=== PATIENT | female | born 1960 | race Caucasian/White ===

== ENCOUNTER → 2016-06-09 | Outpatient (CLI) | payer OTHER ==
[~2016-06-09] MED LIST: ASPI81TA28 PO; AZITTAB PO; CLB/200 PO; CRAN1CAP PO; CRS/10 PO; CYAN500T PO; ERYOPO OPR; FLUO40CA8 PO; GLC/500 PO; HYDR-3714 PO; HYDR25TA4 PO; LISI-725 PO; LORA-741 PO; MULT-506 PO; OMEG10007 PO; PRENTAB26 PO
== END | disposition home or self-care (01) ==
LOC: C.LAB 14:29
PROVIDERS: ATTEND Internal Medicine
DX: R39.9 Unspecified symptoms and signs involving the genitourinary system (principal)

== ENCOUNTER → 2016-07-10 | Outpatient (CLI) | payer OTHER ==
--- NOTE | 2016-07-10 16:05 | DIAGNOSTIC IMAGING REPORT ---
CT TEMPORAL BONE/MASTOID NO CONTRAST CT DOSE: CLINICAL HISTORY: Right mastoid pain suspected mastoiditis TECHNIQUE: Unenhanced images were obtained through the mastoids. Sagittal and coronal reformatted imaging was performed. COMPARISON STUDY: None. FINDINGS: There is a right mastoid effusion. The middle ear cavities appear well aerated. There is no hydrocephalus. There are no findings to indicate intracranial abscess on this noncontrast study. The scutum appears intact bilaterally. IMPRESSION: Right mastoid effusion, consistent with the clinical diagnosis of mastoiditis Electronically signed by: Jamil Thomas M.D. 07/10/2016 4:04 PM Dictated Date/Time: 07/10/2016 4:01 PM
== END | disposition home or self-care (01) ==
LOC: C.CTS 15:35
PROVIDERS: ATTEND Internal Medicine
DX: H60.509 Unspecified acute noninfective otitis externa, unspecified ear (principal); H73.0 Acute myringitis; H72.90 Unspecified perforation of tympanic membrane, unspecified ear; H90.11 Conductive hearing loss, unilateral, right ear, with unrestricted hearing on the contralateral side

== ENCOUNTER → 2016-07-26 | Outpatient (CLI) | payer OTHER | END | disposition home or self-care (01) | LOC: C.LABSPEC 17:00 | DX: H92.11 Otorrhea, right ear (principal); H92.01 Otalgia, right ear ==

== ENCOUNTER → 2016-09-13 | Outpatient (CLI) | payer OTHER ==
[2016-09-13 13:47] LABS: ALT/SGPT 62 U/L (12-78); BLOOD UREA NITROGEN 12 mg/dl (7-18); CARBON DIOXIDE 27 mmol/L (21-32); CHLORIDE 103 mmol/L (98-107); CHOLESTEROL 205 mg/dl (0-200); CREATININE 0.73 mg/dl (0.60-1.20); GLUCOSE 107 mg/dl (70-99); POTASSIUM 4.2 mmol/L (3.5-5.1); SODIUM 138 mmol/L (136-145); TRIGLYCERIDES 305 mg/dl (0-150); VERY LOW DENSITY LIPOPROT CALC 61 mg/dl
[2016-09-13 13:53] LABS: ALKALINE PHOSPHATASE 110 U/L (45-117); AST/SGOT 39 U/L (15-37); CHOLESTEROL/HDL RATIO 5.1; FERRITIN 58.8 ng/ml (8.0-388.0); HDL CHOLESTEROL 40 mg/dl; LDL CHOLESTEROL CALCULATED 104 mg/dl; TOTAL IRON BINDING CAPACITY 325 mcg/dl (250-450)
[2016-09-13 14:04] LABS: CALCIUM 10.1 mg/dl (8.5-10.1)
[2016-09-13 14:16] LABS: BASO % 0.4 %; BASO ABS # 0.04 K/uL (0-0.2); COMPLETE YES; EOS % 2.6 %; HEMATOCRIT 42.9 % (37-47); IG% 0.4 %; LYMPH % 34.2 %; LYMPH ABS # 3.54 K/uL (1.2-3.4); MEAN CELL VOLUME 92.5 fL (80-100); MEAN CORPUSCULAR HEMOGLOBIN 31.5 pg (25-34); MEAN PLATELET VOLUME 10.7 fL (7.4-10.4); MONO % 4.7 %; NEUT % 57.7 %; PLATELET COUNT 362 K/uL (130-400); RED BLOOD COUNT 4.64 M/uL (4.2-5.4); WHITE BLOOD COUNT 10.34 K/uL (4.8-10.8)
[2016-09-13 14:34] LABS: ESTIMATED AVERAGE GLUCOSE 154 mg/dl; HA1C FLAG Normal (Normal)
== END | disposition home or self-care (01) ==
LOC: C.LABBFT 08:12
PROVIDERS: ATTEND Physician Assistant Medical
DX: E11.9 Type 2 diabetes mellitus without complications (principal); E78.5 Hyperlipidemia, unspecified; Z11.59 Encounter for screening for other viral diseases; D64.9 Anemia, unspecified

== ENCOUNTER → 2016-11-02 | Outpatient (CLI) | payer OTHER ==
[2016-11-02 18:35] LABS: URINE APPEARANCE CLEAR (CLEAR); URINE BILIRUBIN NEG (NEG); URINE COLOR YELLOW; URINE EPITHELIAL CELL AUTO 0-5 /lpf (0-5); URINE NITRITE POS (NEG); URINE PH 5.5 (4.5-7.5); URINE SPECIFIC GRAVITY 1.018 (1.000-1.030); UROBILINOGEN NEG (NEG)
[2016-11-02 18:43] LABS: MANUAL MICROSCOPIC REQUIRED? NO; REVIEW REQ? NO
== END | disposition home or self-care (01) ==
LOC: C.LABSPEC 17:47
PROVIDERS: ATTEND Physician Assistant Medical
DX: R39.9 Unspecified symptoms and signs involving the genitourinary system (principal)

== ENCOUNTER → 2016-11-21 | Outpatient (CLI) | payer OTHER ==
[2016-11-21 14:24] LABS: URINE APPEARANCE CLEAR (CLEAR); URINE BILIRUBIN NEG (NEG); URINE COLOR YELLOW; URINE EPITHELIAL CELL AUTO >30 /lpf (0-5); URINE NITRITE NEG (NEG); URINE SPECIFIC GRAVITY 1.019 (1.000-1.030); UROBILINOGEN NEG (NEG); ZZUR CULT IF INDIC CLEAN CATCH NO
[2016-11-21 14:31] LABS: MANUAL MICROSCOPIC REQUIRED? NO; REVIEW REQ? YES
== END | disposition home or self-care (01) ==
LOC: C.LABSPEC 12:35
PROVIDERS: ATTEND Physician Assistant Medical
DX: N39.0 Urinary tract infection, site not specified (principal)

== ENCOUNTER 2017-02-13 14:14 | Emergency (ER) | payer OTHER ==
[~2017-02-13] VITALS: Ht 167.6 cm; Wt 92.0 kg
[~2017-02-13 14:14] MED LIST changes: -ASPI81TA28 PO; -AZITTAB PO; -CRAN1CAP PO; -CYAN500T PO; -ERYOPO OPR; -PRENTAB26 PO
[2017-02-13 14:17] VITALS: Ht 167.6 cm; Wt 92.0 kg
[2017-02-13] MEDS ORDERED: COUGH DROP (SUGAR FREE) LOZ 24 LOZ/1 BOX PO STA (15:12)
[2017-02-13] MEDS ORDERED: BENZONATATE 100MG CAP PO STA (15:12)
[2017-02-13] MEDS ORDERED: GUAIFENESIN 600 MG TABCR PO STA (15:12)
[2017-02-13] MEDS ORDERED: ACETAMINOPHEN/CODEINE 300/30MG TAB PO ONE (15:15)
--- NOTE | 2017-02-13 15:26 | EMERGENCY ROOM VISIT NOTE ---
History Report prepared by Truong: Toñito Blackmon Under the Supervision of: Dr. Geo Duran M.D. First contact with patient: 14:36 Chief Complaint: COUGH Stated Complaint: CONT. PRODUCTIVE COUGH Nursing Triage Summary: Pt presents with c/o sore throat, n/v last night and this morning. Pt states she is diabetic, was unable to take meds this morning. Cough of green sputum x 6 days, body aches. History of Present Illness The patient is a 56 year old white female with a past medical history of HTN, kidney disease, diabetes, and kidney stones who presents to the ED with a cc of constant productive cough beginning six days ago. Positive congestion, rhinorrhea, right eye crusting for the past two days, chest heaviness, some diarrhea. Negative nausea, recent travels, history of blood clots. Her cough is producing green mucous with streaks of blood. She drinks alcohol occasional and smokes cigarettes. She is also around someone sick at home. Source of History: patient Onset: six days ago Position: other (global) Quality: other (cough) Timing: constant Associated Symptoms: + diarrhea, No nausea Note: Associated symptoms: congestion, rhinorrhea, right eye crusting, chest heaviness Review of Systems See HPI for pertinent positives and negatives. A total of ten systems were reviewed and were otherwise negative. Past Medical & Surgical Medical Problems: (1) Diabetes (2) HTN (hypertension) (3) Kidney disease Family History Cancer Diabetes mellitus FHx: gallbladder disease Heart disease Hypertension Kidney disease Kidney stones Social History Smoking Status: Current Every Day Smoker Marital Status: Housing Status: lives with friends Occupation Status: employed Current/Historical Medications Scheduled Aspirin (Aspirin Ec), 81 MG PO DAILY Azithromycin (Zithromax Z-Nabil), 1 PKT PO UD Cranberry-Vitamin C-Vitamin E (Cranberry Concentrate), 1 CAP PO DAILY Cyanocobalamin (Vitamin B-12), 500 MCG PO DAILY Erythromycin Opth (Erythromycin Opth), 0.5 INCH OPR QID Fish Oil ([place]-3), 1 CAP PO DAILY Fluoxetine (Prozac), 40 MG PO DAILY Hydrochlorothiazide (Hctz), 25 MG PO DAILY Lisinopril (Zestril), 20 MG PO DAILY Lorazepam (Ativan), 0.5 MG PO Q6H Metformin Hcl (Glucophage), 1,000 MG PO BID Multivit/Min/Iron/Fol Ac/Pren ( Vitamin), 1 TAB PO DAILY Rosuvastatin Calcium (Crestor), 10 MG PO DAILY Allergies Coded Allergies: Penicillins (Unverified Allergy, Unknown, YEAST INFECTION, 02/13/17) Amoxicillin (Verified Adverse Reaction, Mild, Yeast Infection, 02/13/17) Sulfamethoxazole w/Trimethoprim (Verified Adverse Reaction, Unknown, Yeast Infection, 08/29/13) Physical Exam Vital Signs Date Time Temp Pulse Resp B/P (MAP) Pulse Ox O2 Delivery O2 Flow Rate FiO2 02/13/17 17:29 37.5 76 20 142/82 95 02/13/17 17:05 76 20 142/82 95 Room Air 02/13/17 16:03 78 02/13/17 14:17 37.5 107 18 156/92 94 Room Air 02/13/17 14:17 95 Room Air Physical Exam GENERAL: Awake, alert, well-appearing, NAD HENT: Normocephalic, atraumatic. EYES: Mild conjunctivitis. No injection at the limbus. No hyphema or hypopyon. No drainage noted. No injection of the left eye. Visual acuity is grossly normal. Not proptotic. EOMI NECK: Supple. No nuchal rigidity. FROM. RESPIRATORY: CTAB, no rhonchi, wheezing, crackles CARDIAC: Tachycardic but regular. No MRG ABDOMEN: Soft, NTND, BS+ MSK: No chest wall TTP, no LE edema. No calf pain, erythema, or calor. NEURO: GCS 15, CN 2-12 intact, moves all 4s on command SKIN: No rash or jaundice noted. Medical Decision & Procedures ER Provider Diagnostic Interpretation: Radiology results as stated below per my review and radiologist interpretation: CHEST 2 VIEWS ROUTINE CLINICAL HISTORY: Cough. COMPARISON STUDY: Chest radiograph July 06, 2015. FINDINGS: Lung volumes are normal. No pneumothorax or pleural effusion is present. No consolidation is identified. Pulmonary vascularity is normal. Cardiomediastinal silhouette is normal. The appearance of the chest is unchanged. IMPRESSION: No acute cardiopulmonary findings. Electronically signed by: Sammy Leiva M.D. 02/13/2017 4:29 PM Dictated Date/Time: 02/13/2017 4:28 PM Laboratory Results 02/13/17 15:37 Red Blood Count 4.94, Mean Corpuscular Volume 89.9, Mean Corpuscular Hemoglobin 32.2, Mean Corpuscular Hemoglobin Concent 35.8, Mean Platelet Volume 10.2, Neutrophils (%) (Auto) 60.9, Lymphocytes (%) (Auto) 31.0, Monocytes (%) (Auto) 5.9, Eosinophils (%) (Auto) 1.7, Basophils (%) (Auto) 0.2, Neutrophils # (Auto) 7.56, Lymphocytes # (Auto) 3.85, Monocytes # (Auto) 0.73, Eosinophils # (Auto) 0.21, Basophils # (Auto) 0.03 02/13/17 15:37 Test 02/13/17 15:37 02/13/17 15:43 White Blood Count 12.42 K/uL (4.8-10.8) Red Blood Count 4.94 M/uL (4.2-5.4) Hemoglobin 15.9 g/dL (12.0-16.0) Hematocrit 44.4 % (37-47) Mean Corpuscular Volume 89.9 fL (80-100) Mean Corpuscular Hemoglobin 32.2 pg (25-34) Mean Corpuscular Hemoglobin Concent 35.8 g/dl (32-36) Platelet Count 350 K/uL (130-400) Mean Platelet Volume 10.2 fL (7.4-10.4) Neutrophils (%) (Auto) 60.9 % Lymphocytes (%) (Auto) 31.0 % Monocytes (%) (Auto) 5.9 % Eosinophils (%) (Auto) 1.7 % Basophils (%) (Auto) 0.2 % Neutrophils # (Auto) 7.56 K/uL (1.4-6.5) Lymphocytes # (Auto) 3.85 K/uL (1.2-3.4) Monocytes # (Auto) 0.73 K/uL (0.11-0.59) Eosinophils # (Auto) 0.21 K/uL (0-0.5) Basophils # (Auto) 0.03 K/uL (0-0.2) RDW Standard Deviation 42.9 fL (36.4-46.3) RDW Coefficient of Variation 13.2 % (11.5-14.5) Immature Granulocyte % (Auto) 0.3 % Immature Granulocyte # (Auto) 0.04 K/uL (0.00-0.02) Anion Gap 8.0 mmol/L (3-11) Est Creatinine Clear Calc Drug Dose 89.6 ml/min Estimated GFR () 94.0 Estimated GFR (Non- 81.1 BUN/Creatinine Ratio 17.0 (10-20) Calcium Level 9.7 mg/dl (8.5-10.1) Phosphorus Level 2.4 mg/dl (2.5-4.9) Magnesium Level 2.2 mg/dl (1.8-2.4) Bedside Troponin I < 0.030 ng/ml (0-0.045) Laboratory results reviewed by me Medications Administered Medications (Trade) Dose Ordered Sig/Beronica Route Start Time Stop Time Status Last Admin Dose Admin Acetaminophen/ Codeine Phosphate (Tylenol w/ Codeine #3 Tab) 1 tab NOW ONCE PO 02/13/17 15:15 02/13/17 15:19 DC 02/13/17 15:49 1 TAB Menthol ([place]) 1 eden NOW STAT PO 02/13/17 15:12 02/13/17 15:19 DC 02/13/17 15:50 1 EDEN Benzonatate (Tessalon Perles Cap) 100 mg ONE STAT PO 02/13/17 15:12 02/13/17 15:19 DC 02/13/17 15:50 100 MG Guaifenesin (Mucinex Contr Rel Tab) 1,200 mg ONE STAT PO 02/13/17 15:12 02/13/17 15:19 DC 02/13/17 15:49 1,200 MG ECG Indication: chest pain, other (cough) Rate (beats per minute): 87 Rhythm: sinus rhythm Findings: T-wave inversion (lead 3. Not contiguous), other (Normal intervals, mild elevation in lead 2 but no contiguous leads, no other STS changes or TWI) ED Course 1502: The patient was evaluated in room A3. A complete history and physical exam was performed. 1631: I reevaluated the patient. Discussed results and discharge instructions: She verbalized understanding and agreement. The patient is ready for discharge. Medical Decision The patient is a 56 year old white female with a past medical history of HTN, kidney disease, diabetes, and kidney stones who presents to the ED with a cc of constant productive cough beginning six days ago. Positive congestion, rhinorrhea, right eye crusting for the past two days, chest heaviness, some diarrhea. Negative nausea, recent travels, history of blood clots. Triage Nursing notes reviewed. The patient's presentation and history were concerning for URI, pharyngitis, sinusitis, conjunctivitis, atypical chest pain, PE, bronchitis, pneumonia. Patient was seen and evaluated at the bedside. Patient's symptoms most likely consistent with URI type symptoms and/or bronchitis. Patient's EKG did show some changes that she was told that she would need to follow-up. Patient's story is not consistent with chest pain. Patient had a negative troponin. Patient's chest x-ray negative. Not WELLS neg given some blood streak in sputum but more likely bronchitis given signs and symptoms. Patient was told to return if she had any SOB/CP but CP is only after prolonged persistent coughing. No hypoxia noted. Patient's tachycardia resolved. The rest of the patient's blood work was fairly unremarkable. Patient was told that she needs to continue supportive care at home. Patient was given prescriptions for her conjunctivitis as well as bronchitis if she has persistent or worsening symptoms. Patient was told to obtain a follow-up appointment. Patient was given strict follow-up, discharge, and return precautions. Patient agreed. Patient was safely discharged home. Medication Reconcilliation Current Medication List: was personally reviewed by me Blood Pressure Screening Patient's blood pressure: Elevated blood pressure Blood pressure disposition: Referred to PCP Impression Primary Impression: URI (upper respiratory infection) Additional Impression: Bronchitis Scribe Attestation The scribe's documentation has been prepared under my direction and personally reviewed by me in its entirety. I confirm that the note above accurately reflects all work, treatment, procedures, and medical decision making performed by me. Departure Information Dispostion Home / Self-Care Prescriptions Erythromycin Opth (ERYTHROMYCIN OPTH) 12 Appln/3.5 Gm Oint 0.5 INCH OPR QID for 1 Day, #1 TUBE Prov: Geo Duran M.D. 02/13/17 Azithromycin (ZITHROMAX Z-NABIL) 250 Mg Tab 1 PKT PO UD for 5 Days, #6 TAB Prov: Geo Duran M.D. 02/13/17 Referrals Cali, Lotus D., M.D. (PCP) Forms HOME CARE DOCUMENTATION FORM, IMPORTANT VISIT INFORMATION Patient Instructions Bronchitis Acute, ED Smoking Cessation, My [facility] Additional Instructions Please return to the emergency department if you have worsening or recurrent symptoms not amenable to at-home treatment. Please call for a follow-up appointment with her primary care physician. Please take your medications as prescribed. If you have other concerns and/or complaints please feel free to also call your primary care physician's office or return the ED for further evaluation, management, and treatment. Place warm clothes over affected eye. If still w/ purulent drainage you may start using drops. Discontinue any contact use until infection clears if using. Practice good hand hygiene and wash hands when touching eyes/face. You may take motrin as needed for pain but do not take it for more than 1-2 days at a time as it may cause upset stomach and/or kidney problems. You may take tylenol 1000mg every 6 hours as needed for pain. You may take over the counter Mucinex, cepacol/tessalon perrles as needed for sore throat. Only take you prescription if you develop fever or have persistent productive cough for more than 2 weeks. You have been examined and treated today on an emergency basis only. This is not a substitute for, or an effort to provide, complete comprehensive medical care. It is impossible to recognize and treat all injuries or illnesses in a single emergency department visit. It is therefore important that you follow up closely with [facility]. Call as soon as possible for an appointment. Thank you for your time and consideration. I look forward to speaking with you again soon. Please don't hesitate to call us if you have any questions. Problem Qualifiers Primary Impression: URI (upper respiratory infection) URI type: unspecified URI Qualified Codes: J06.9 - Acute upper respiratory infection, unspecified
[2017-02-13 15:56] LABS: BASO % 0.2 %; BASO ABS # 0.03 K/uL (0-0.2); COMPLETE YES; EOS % 1.7 %; HEMATOCRIT 44.4 % (37-47); IG% 0.3 %; LYMPH ABS # 3.85 K/uL (1.2-3.4); MEAN CELL VOLUME 89.9 fL (80-100); MEAN CORPUSCULAR HEMOGLOBIN 32.2 pg (25-34); MEAN CORPUSCULAR HGB CONC 35.8 g/dl (32-36); MEAN PLATELET VOLUME 10.2 fL (7.4-10.4); MONO % 5.9 %; NEUT % 60.9 %; PLATELET COUNT 350 K/uL (130-400); RED BLOOD COUNT 4.94 M/uL (4.2-5.4); WHITE BLOOD COUNT 12.42 K/uL (4.8-10.8)
[2017-02-13 16:14] LABS: CALCIUM 9.7 mg/dl (8.5-10.1); CREATININE 0.82 mg/dl (0.60-1.20); MAGNESIUM 2.2 mg/dl (1.8-2.4); PHOSPHORUS 2.4 mg/dl (2.5-4.9); POTASSIUM 3.8 mmol/L (3.5-5.1)
[2017-02-13] MEDS ORDERED: PRENTAB26 PO (16:25)
[2017-02-13] MEDS ORDERED: CRAN1CAP PO (16:26)
[2017-02-13] MEDS ORDERED: CYAN500T PO (16:26)
[2017-02-13] MEDS ORDERED: ASPI81TA28 PO (16:26)
--- NOTE | 2017-02-13 16:30 | DIAGNOSTIC IMAGING REPORT ---
CHEST 2 VIEWS ROUTINE CLINICAL HISTORY: Cough. COMPARISON STUDY: Chest radiograph July 06, 2015. FINDINGS: Lung volumes are normal. No pneumothorax or pleural effusion is present. No consolidation is identified. Pulmonary vascularity is normal. Cardiomediastinal silhouette is normal. The appearance of the chest is unchanged. IMPRESSION: No acute cardiopulmonary findings. Electronically signed by: Sammy Leiva M.D. 02/13/2017 4:29 PM Dictated Date/Time: 02/13/2017 4:28 PM
[2017-02-13] MEDS ORDERED: AZITTAB PO (17:01)
[2017-02-13] MEDS ORDERED: ERYOPO OPR (17:01)
[2017-02-13 17:29] VITALS: BP 142/82; PULSE 76; TEMP 37.5; O2SAT 95
== END 2017-02-13 17:29 | disposition home or self-care (01) ==
LOC: C.EDB 14:15 → C.EDA 17:29
DX: J06.9 Acute upper respiratory infection, unspecified (principal); J40 Bronchitis, not specified as acute or chronic; E11.9 Type 2 diabetes mellitus without complications; I10 Essential (primary) hypertension; N28.9 Disorder of kidney and ureter, unspecified; Z80.9 Family history of malignant neoplasm, unspecified; Z83.79 Family history of other diseases of the digestive system; Z84.1 Family history of disorders of kidney and ureter; Z82.49 Family history of ischemic heart disease and other diseases of the circulatory system; F17.210 Nicotine dependence, cigarettes, uncomplicated; Z79.82 Long term (current) use of aspirin; Z79.899 Other long term (current) drug therapy

== ENCOUNTER → 2017-04-27 | Outpatient (CLI) | payer OTHER ==
[~2017-04-27] MED LIST changes: +ASPI81TA28 PO; -CLB/200 PO; +CRAN1CAP PO; +CYAN500T PO; +ERYOPO OPR; -HYDR-3714 PO; -MULT-506 PO; +PRENTAB26 PO
[2017-04-27 09:31] LABS: ALT/SGPT 49 U/L (12-78); BLOOD UREA NITROGEN 18 mg/dl (7-18); BUN/CREATININE RATIO 24.2 (10-20); CALCIUM 9.8 mg/dl (8.5-10.1); CARBON DIOXIDE 29 mmol/L (21-32); CHLORIDE 101 mmol/L (98-107); CHOLESTEROL 177 mg/dl (0-200); CREATININE 0.74 mg/dl (0.60-1.20); GLUCOSE 110 mg/dl (70-99); POTASSIUM 3.9 mmol/L (3.5-5.1); SODIUM 136 mmol/L (136-145); TRIGLYCERIDES 338 mg/dl (0-150); VERY LOW DENSITY LIPOPROT CALC 68 mg/dl
[2017-04-27 09:36] LABS: ALKALINE PHOSPHATASE 111 U/L (45-117); AST/SGOT 37 U/L (15-37); CHOLESTEROL/HDL RATIO 4.3; HDL CHOLESTEROL 41 mg/dl; LDL CHOLESTEROL CALCULATED 68 mg/dl
[2017-04-28 07:38] LABS: ESTIMATED AVERAGE GLUCOSE 166 mg/dl; HA1C FLAG Normal (Normal)
[2017-04-30 13:22] LABS: HERPES SIMPLEX AB IGG-2 < 0.90 INDEX (< 0.90)
== END | disposition home or self-care (01) ==
LOC: C.LAB 07:15
PROVIDERS: ATTEND Physician Assistant Medical
DX: E78.5 Hyperlipidemia, unspecified (principal); E11.9 Type 2 diabetes mellitus without complications; Z11.3 Encounter for screening for infections with a predominantly sexual mode of transmission

== ENCOUNTER → 2017-05-01 | Outpatient (CLI) | payer OTHER | END | disposition home or self-care (01) | LOC: C.LABSPEC 17:49 | PROVIDERS: ATTEND Nurse Practitioner | DX: R31.9 Hematuria, unspecified (principal) ==

== ENCOUNTER → 2017-05-02 | Outpatient (CLI) | payer OTHER | END | disposition home or self-care (01) | LOC: C.PAPS 14:12 | PROVIDERS: ATTEND Nurse Practitioner | DX: Z01.419 Encounter for gynecological examination (general) (routine) without abnormal findings (principal) ==

== ENCOUNTER → 2017-05-04 | Outpatient (CLI) | payer OTHER ==
--- NOTE | 2017-05-04 15:39 | DIAGNOSTIC IMAGING REPORT ---
PELVIC COMPLETE NON OB CLINICAL HISTORY: N83.209 Ovarian cyst PAIN COMPARISON STUDY: Ovarian cyst FINDINGS: The uterus measured surgically removed. The endometrial stripe measured . The right ovary measured 2.6 cm maximum dimension. 4 mm calcification. No cystic change. Normal vascular flow.. The left ovary measured 2.8 cm maximum dimension. Normal vascular flow. There is no ultrasonographic evidence of ovarian torsion. It should be noted that ovarian torsion can be present with normal Doppler ultrasonographic findings. There was no evidence of pathologic free pelvic fluid. IMPRESSION: Negative study status post partial hysterectomy. No evidence for ovarian cyst. The above report was generated using voice recognition software. It may contain grammatical, syntax or spelling errors. Electronically signed by: Ger Whitehead M.D. 05/04/2017 3:37 PM Dictated Date/Time: 05/04/2017 3:36 PM
== END | disposition home or self-care (01) ==
LOC: C.ULTR 14:52
PROVIDERS: ATTEND Nurse Practitioner
DX: N83.209 Unspecified ovarian cyst, unspecified side (principal); Z90.711 Acquired absence of uterus with remaining cervical stump

== ENCOUNTER 2017-08-31 20:29 | Emergency (ER) | payer OTHER ==
[~2017-08-31] VITALS: Ht 167.6 cm; Wt 97.5 kg
[2017-08-31 20:32] VITALS: TEMP 36.7; Ht 167.6 cm; Wt 97.5 kg
[2017-08-31] MEDS ORDERED: CLINDAMYCIN HCL 150 MG CAP PO STA (21:15)
[2017-08-31] MEDS ORDERED: CLINDAMYCIN 150MG HOME PACK PO STA (21:15)
[2017-08-31] MEDS ORDERED: CLIN300C2 PO (21:28)
[2017-08-31 21:29] VITALS: BP 155/87; PULSE 91; O2SAT 94
--- NOTE | 2017-08-31 21:29 | EMERGENCY ROOM VISIT NOTE ---
ED Visit Note First contact with patient: 20:45 CHIEF COMPLAINT: Infection of the left great toe HISTORY OF PRESENT ILLNESS: This 57-year-old female patient presents to the emergency department, ambulatory, complaining of pain, redness, and swelling at the base of the left great toenail bed. The patient had the toenail removed 3 weeks ago by the ankle and customer solutions specialist. She states she was seen 2 days later and had a normal follow-up. She states 10 days ago, she returns to the office due to increased swelling, redness, and warmth. At that time, she was started on Augmentin, which she finished today. She states initially she felt that the symptoms were improving while on the antibiotic, however they began worsening the past few days. She describes a pressure like sensation, and states it is severe, worse with palpation. The area has become red, warm, and very painful. The patient denies fever, chills, nausea, or loss of appetite. Movement of the left great toe is mildly decreased because of the pain. The patient's tetanus shot is up to date. REVIEW OF SYSTEMS: A 10 system review of systems was performed with positives and pertinent negatives listed in the history of present illness. All other systems were reviewed and are negative. ALLERGIES: None MEDICATIONS: Augmentin PMH: Diabetes SOCIAL HISTORY: The patient lives locally with family. She denies drug, alcohol , tobacco use. PHYSICAL EXAM: Vital Signs: Reviewed Nurse's notes, Temperature 36.7C, blood pressure elevated, and the patient is slightly tachycardic. She does report feeling very anxious due to the emergency department visit. GENERAL: This is a 57-year-old obese white female, in no acute distress, is non toxic in appearance , well-developed, well-nourished. SKIN: The left great toe is red, warm, very tender, and swollen on the dorsal aspect, just proximal to the nailbed. There is no lymphangitic streaking. There is no discharge. There is no fluctuance. There is no induration. HEART: Regular rate and rhythm without murmur, gallop, or rub. LUNGS: Clear to auscultation bilaterally without wheezes, rales, or rhonchi. NEURO: Alert and oriented to person, place, and time. Normal sensation to light and sharp touch. Capillary reflex less than 2 seconds. Peripheral pulses 2 + bilaterally. EMERGENCY DEPARTMENT COURSE: I examined the patient. She presents with a localized cellulitis approximately 3 weeks after removal of a toenail. The patient is currently under the care of her foot and ankle specialist, and was recently given a course of Augmentin. The patient finished the Augmentin today , and states the symptoms seem to worsen over the past few days. The patient is currently diabetic, and based on her recent treatment with Augmentin, I feel that starting her with clindamycin is the best course of action. There is no active drainage, so I am unable to perform a culture. The patient does have an appointment scheduled to follow-up with her ankle and customer solutions specialist next week. The patient was encouraged to use a probiotic due to the risk of C. difficile infection associated with clindamycin. The patient was agreeable to the plan of care. All questions were answered to the patient and her daughter satisfaction. Discharge instructions reviewed, the patient was discharged home in good condition. I attest that I have personally reviewed the patient's current medication list. Patient was found to have an elevated blood pressure and was referred to their primary doctor for recheck and further treatment. Differential diagnosis includes cellulitis, abscess, DVT, superficial thrombus, septic joint, necrotizing fasciitis, burn, dermatitis, impetigo, erythema multiforme, bite, osteomyelitis, Gutierrez-Barry Syndrome, gangrene, malignancy , and others DIAGNOSIS: Cellulitis of the left great toe Current/Historical Medications Scheduled Aspirin (Aspirin Ec), 81 MG PO DAILY Clindamycin Hcl (Cleocin), 300 MG PO QID Cranberry-Vitamin C-Vitamin E (Cranberry Concentrate), 1 CAP PO DAILY Cyanocobalamin (Vitamin B-12), 500 MCG PO DAILY Erythromycin Opth (Erythromycin Opth), 0.5 INCH OPR QID Fish Oil ([place]-3), 1 CAP PO DAILY Fluoxetine (Prozac), 40 MG PO DAILY Hydrochlorothiazide (Hctz), 25 MG PO DAILY Lisinopril (Zestril), 20 MG PO DAILY Lorazepam (Ativan), 0.5 MG PO Q6H Metformin Hcl (Glucophage), 1,000 MG PO BID Multivit/Min/Iron/Fol Ac/Pren ( Vitamin), 1 TAB PO DAILY Rosuvastatin Calcium (Crestor), 10 MG PO DAILY Allergies Coded Allergies: Penicillins (Unverified Allergy, Unknown, YEAST INFECTION, 02/13/17) Amoxicillin (Verified Adverse Reaction, Mild, Yeast Infection, 02/13/17) Sulfamethoxazole w/Trimethoprim (Verified Adverse Reaction, Unknown, Yeast Infection, 08/29/13) Vital Signs Date Time Temp Pulse Resp B/P (MAP) Pulse Ox O2 Delivery O2 Flow Rate FiO2 08/31/17 21:29 91 20 155/87 94 Room Air 08/31/17 20:32 36.7 105 20 171/92 96 Room Air Medications Administered Medications (Trade) Dose Ordered Sig/Beronica Route Start Time Stop Time Status Last Admin Dose Admin Clindamycin HCl (Cleocin Cap) 300 mg ONE STAT PO 08/31/17 21:15 08/31/17 21:18 DC 08/31/17 21:28 300 MG Clindamycin HCl (Cleocin 150MG Home Pack) 1 homepack UD STAT PO 08/31/17 21:15 08/31/17 21:18 DC 08/31/17 21:27 1 HOMEPACK Departure Information Impression Primary Impression: Cellulitis of toe of left foot Dispostion Home / Self-Care Condition GOOD Prescriptions Clindamycin Hcl (CLEOCIN) 300 Mg Cap 300 MG PO QID for 7 Days, #28 CAP Prov: Jesenia Mclean PA-C 08/31/17 Referrals Lotus Leiva M.D. (PCP) Patient Instructions ED Infec Skin Cellulitis, [facility], 1928–1983 Additional Instructions You were seen in the emergency department today for a left great toe infection. You were prescribed clindamycin to be taken 300 mg 4 times daily. This is an antibiotic. All antibiotics have the potential to cause diarrhea. Stop this medication and contact a medical provider if you were to develop any significant adverse side effects including: wheezing, shortness of breath, passing out, vomiting, or a diffuse rash. Always take antibiotics as directed and COMPLETE the ENTIRE course regardless of the improvement of your symptoms. You may consider taking a probiotic while on this antibiotic. Please continue to perform warm Epsom salts soaks. Ibuprofen(Motrin, Advil) may be used for fever or pain. Use 600mg every six hours as needed. Take with food. Avoid using more than 2400mg in a 24 hour period. Do not use 2400mg per day for more than three consecutive days without physician direction. Prolonged inappropriate use can lead to stomach upset or ulcers. (AND/OR) Acetaminophen(Tylenol) may be used for fever or pain. Use 1000mg every six hours as needed. Avoid using more than 3000mg in a 24 hour period. Follow-up with your customer solutions specialist regarding further management and care. Your regularly scheduled appointment on is appropriate unless your symptoms worsen prior to that time. Return to the emergency department for any worsening pain, swelling, drainage, fevers, chills, nausea, vomiting, body aches, or other systemic symptoms or concerns.
== END 2017-08-31 21:36 | disposition home or self-care (01) ==
LOC: C.EDB 20:30 → C.EDD 21:36
DX: L03.032 Cellulitis of left toe (principal); Z98.890 Other specified postprocedural states; E11.9 Type 2 diabetes mellitus without complications; E66.9 Obesity, unspecified; Z79.82 Long term (current) use of aspirin; Z79.84 Long term (current) use of oral hypoglycemic drugs; Z79.899 Other long term (current) drug therapy; Z88.0 Allergy status to penicillin; Z88.1 Allergy status to other antibiotic agents; Z88.2 Allergy status to sulfonamides

== ENCOUNTER → 2017-12-28 | Outpatient (CLI) | payer OTHER | END | disposition home or self-care (01) | LOC: C.LAB 10:37 | PROVIDERS: ATTEND Internal Medicine | DX: R39.9 Unspecified symptoms and signs involving the genitourinary system (principal) ==